=== PATIENT | female | born 1985 | race Caucasian/White ===

== ENCOUNTER 2019-07-15 15:11 | Emergency (ER) | payer SELFPAY ==
[2019-07-15 15:24] VITALS: BP 96/52
--- NOTE | 2019-07-15 15:48 | UC ---
UC General HPI - HPI Summary HPI Summary: 33 yo woman, disability secondary to bipolar illness, with gradual weight loss over the past 6 months. In the past 2 days, she has had 5 episodes of emesis, last was this morning, associated with mild epigastric pain and tightening. No diarrhea; actually is prone to constipation and has continued to use Senna daily. No loose stools. Has voided several times today; decreased solid intake, eating 2 bagels in the past 2 days. Has been sipping pedialyte today. Last emesis was this morning. Does not drink alcohol; drinks 4 cups of coffee per day. No dysphagia. Follows a vegan diet. Nausea x months, and has had initial work up in [place]. Has IUD in place, but concerned about possible . Past hx of bulimia and purging, but has been in remission for the past 2 years. - History of Current Complaint Chief Complaint: UCAbdominalPain Stated Complaint: vomiTING Time Seen by Provider: 07/15/19 15:37 Hx Obtained From: Patient Hx Last Menstrual Period: doesn't get d/t mirena Onset/Duration: Sudden Onset, Lasting Days - 2 Timing: Intermittent Episodes Lasting: Onset Severity: Moderate Current Severity: Mild Pain Intensity: 3 Associated Signs & Symptoms: Positive: Dizziness - improved since she began using pedialyte. - Allergy/Home Medications Allergies/Adverse Reactions: Allergies Allergy/AdvReac Type Severity Reaction Status Date / Time No Known Allergies Allergy Verified 07/15/19 15:24 Home Medications: Home Medications ARIPiprazole TAB* [Abilify TAB*] 5 mg PO DAILY 07/15/19 [History Confirmed ] FLUoxetine CAP* [PROzac CAP*] 40 mg PO DAILY 07/15/19 [History Confirmed ] Phosphorated Carbo(Dext-Fruct) [Anti-Nausea 1.87-1.87-21.5] 1 kenrick PO 07/15/19 [ History] hydrOXYzine HCL TAB* [Atarax 25 MG TAB*] 25 mg PO QID PRN 07/15/19 [History Confirmed 07/15/19] lamoTRIgine TAB(*) [LaMICtal TAB(*)] 400 mg PO BEDTIME 07/15/19 [History Confirmed 07/15/19] traZODone TAB* [Desyrel TAB*] 50 - 100 mg PO BEDTIME 07/15/19 [History Confirmed 07/15/19] PMH/Surg Hx/FS Hx/Imm Hx GI/ History: Other - Irritable bowel, constipation predominant. Psychological History: Bipolar Disorder, Other - Eating disorder in remission - Surgical History Surgical History: None - Family History Known Family History: Positive: Other - mother with reflux, in midst of GI workup - Social History Occupation: Disabled Lives: With Family - currently visiting family here; primary residence is in [place], returns there in 2 weeks. Alcohol Use: None Alcohol Amount: SOBER Substance Use Type: Marijuana Substance Use Comment - Amount & Last Used: medical marijuana Smoking Status (MU): Former Smoker Length of Time of Smoking/Using Tobacco: 10 years Review of Systems All Other Systems Reviewed And Are Negative: Yes Constitutional: Positive: Fever - subjective, temp not taken, Chills - now resolved. Eyes: Positive: Negative ENT: Negative: Sore Throat, Sinus Congestion Respiratory: Negative: Shortness Of Breath, Cough Cardiovascular: Negative: Palpitations, Chest Pain Gastrointestinal: Positive: Vomiting, Nausea. Negative: Abdominal Pain Genitourinary: Positive: Other - Mirena IUD in place, has irregular spotting since insertion. Motor: Positive: Negative Neurovascular: Positive: Negative Musculoskeletal: Positive: Negative Neurological: Negative: Headache, Weakness Psychological: Positive: Other - controlled bipolar disorder Is Patient Immunocompromised?: No Physical Exam Triage Information Reviewed: Yes Appearance: Well-Appearing, No Pain Distress, Thin Vital Signs: Initial Vital Signs Temp 98.6 F 07/15/19 15:18 Pulse 71 07/15/19 15:18 Resp 16 07/15/19 15:18 BP 96/52 07/15/19 15:18 Pulse Ox 100 07/15/19 15:18 Vital Signs Reviewed: Yes Eyes: Positive: Conjunctiva Clear ENT: Positive: Pharynx normal, TMs normal, Other - moist mucous membranes. Neck: Positive: Supple, Nontender, No Lymphadenopathy Respiratory: Positive: Lungs clear, Normal breath sounds Cardiovascular: Positive: RRR, No Murmur Abdomen Description: Positive: Nontender, No Organomegaly, Soft. Negative: Distended, Guarding Bowel Sounds: Positive: Present Musculoskeletal Exam: Normal Neurological: Positive: Alert, Muscle Tone Normal Psychological Exam: Other - appropriate mood and affect. Diagnostics - Laboratory Lab Results: U-HCG negative. Course/Dx - Course Course Of Treatment: Ondansetron for nausea, trial of PPI for epigastric pain. Advised ER if symptoms persist as a bigger work up would be needed. - Diagnoses Provider Diagnosis: Gastritis Discharge - Sign-Out/Discharge Documenting (check all that apply): Patient Departure All imaging exams completed and their final reports reviewed: No Studies - Discharge Plan Condition: Stable Disposition: HOME Prescriptions: Omeprazole 20 mg PO DAILY #30 capsule. Ondansetron TAB* [Zofran 4 MG Tab*] 4 mg PO Q6H PRN #10 tab PRN Reason: Nausea Patient Education Materials: Gastritis (ED) Referrals: No Primary Care Phys,NOPCP [Primary Care Provider] - Additional Instructions: The current vomiting could be due to a viral illness, or could be the result of overproduction of stomach acid. Use ondansetron for nausea, and increase hydration. Advance from fluids to cooked foods and vegetables as tolerated. Continue work up with your physician in [place] regarding weight loss. If vomiting persists, please go to the emergency room for further work up. - Billing Disposition and Condition Condition: STABLE Disposition: Home
== END 2019-07-15 16:23 | disposition home or self-care (01) ==
LOC: UCEAST 15:11
DX: K29.70 Gastritis, unspecified, without bleeding (principal); F31.9 Bipolar disorder, unspecified; K58.9 Irritable bowel syndrome, unspecified; Z87.891 Personal history of nicotine dependence
CPT/HCPCS: 81003; 81025; 99202; G0463